=== PATIENT | female | born 1985 | race Caucasian/White ===

== ENCOUNTER 2018-01-20 09:59 | Emergency (ER) | payer MEDICAID ==
[~2018-01-20] VITALS: Ht 162.6 cm; Wt 65.9 kg
[2018-01-20] MEDS ORDERED: LAMO25 PO (10:18)
[2018-01-20] MEDS ORDERED: IBUPROFEN 800 MG TABLET PO ONE (11:00)
[2018-01-20 13:30] VITALS: BP 140/76
== END 2018-01-20 14:02 | disposition home or self-care (01) ==
LOC: EMS 10:02
DX: S82.831A Other fracture of upper and lower end of right fibula, initial encounter for closed fracture (principal); F17.210 Nicotine dependence, cigarettes, uncomplicated; W18.49XA Other slipping, tripping and stumbling without falling, initial encounter; Y93.89 Activity, other specified; Y92.89 Other specified places as the place of occurrence of the external cause; Y99.8 Other external cause status
CPT/HCPCS: 29515; 99284